=== PATIENT | male | born 1950 | race Caucasian/White ===

== ENCOUNTER 2016-04-23 17:31 | Inpatient (IN) | payer MEDICARE, MEDICAID ==
[2016-04-23] MEDS ORDERED: ASPIRIN 81 MG CHEWABLE TABLET PO ONE (17:58)
[2016-04-23 18:06] LABS: BASO % 0.2 % (0-6); GRAN % 52.5 % (47-80); HEMATOCRIT 48.4 % (42.0-52.0); HEMOGLOBIN 16.2 gm/dl (14.0-18.0); LYMPH % 34.5 % (16-45); MEAN CELL VOLUME 93.8 fl (81-97); MEAN CORPUSCULAR HEMOGLOBIN 31.4 pg (27-33); MEAN CORPUSCULAR HGB CONC 33.5 g/dl (32-36); MEAN PLATELET VOLUME 10.8 fl (7.4-10.4); MONO % 11.8 % (0-9); PLATELET COUNT 134 K/uL (130-400); RED BLOOD COUNT 5.16 M/uL (4.40-5.70); RED CELL DISTRIBUTION WIDTH 12.5 % (11.5-14.5); WHITE BLOOD COUNT W/O DIFF 5.2 K/uL (4.2-12.2)
[2016-04-23] MEDS: NITROGLYCERIN 0.4MG SL TABLET #25 BTL SL PRN ×2 (18:06→18:17)
[2016-04-23 18:19] LABS: ALB/GLOB RATIO 1.2 (1.1-1.8); ALBUMIN 3.8 gm/dL (3.5-5.0); ALKALINE PHOSPHATASE 138 U/L (38-126); ALT/SGPT 108 U/L (21-72); ANION GAP 10.9 (7-16); AST/SGOT 82 U/L (17-59); BILIRUBIN,TOTAL 0.33 mg/dL (0.2-1.3); BLOOD UREA NITROGEN 9 mg/dL (9-20); CARBON DIOXIDE 31.1 mmol/L (22-30); CREATINE PHOSPHOKINASE 31 U/L (55-170); CREATININE 0.9 mg/dL (0.66-1.25); EST GLOMERULAR FILTRATION RATE > 60 ml/min; GLUCOSE,RANDOM 326 mg/dL (70-110)
[2016-04-23 18:20] LABS: INR 1.15; PARTIAL THROMBOPLASTIN TIME 32.1 SECONDS (24.5-39.1)
[2016-04-23 18:21] LABS: D-DIMER 0.24 mg/L FEU (0-0.59)
[2016-04-23] MEDS ORDERED: ONDANSETRON HCL IV 4 MG/2 ML VIAL IVP ONE (18:29)
[2016-04-23] MEDS ORDERED: HYDROMORPHONE HCL 1 MG/ML CPJ IVP ONE (18:29)
[2016-04-23 18:32] LABS: CKMB < 0.2 ug/L (0-6); TROPONIN I < 0.012 ng/mL (0.00-0.034)
--- NOTE | 2016-04-23 18:39 | Emergency Department Record ---
History of Present Illness - General Chief Complaint: Chest Pain Stated Complaint: CHEST PAIN Time Seen by Provider: 04/23/16 17:46 Source: Patient Mode of Arrival: Wheelchair Limitations: No limitations - History of Present Illness Initial Comments: pt has been having cp for 2 days as well as sob, productive cough. he states he was unsure if it was his heart or his lungs. he took 2 ntg at home and it made his pain better. MD Complaint: Chest pain Onset/Timin -: Days(s) Onset: Awoke with symptoms Pain Location: Other Pain Radiation: None Quality: Other Consistency: Constant Improves With: Nitroglycerin Worsens With: Nothing Anginal Symptoms: Dyspnea Other Symptoms: Cough Treatments Prior to Arrival: Aspirin, Nitroglycerin Treatment Prior to Arrival Comment:: Nitro 45 minutes before coming to ED - Related Data Home Medications Medication Instructions Recorded Confirmed Last Taken Alprazolam [Xanax] 2 mg PO QID 04/30/14 04/23/16 04/23/16 Aspirin [Ecotrin] 81 mg PO DAILY 04/30/14 04/23/16 04/23/16 Atenolol [Tenormin] 50 mg PO BID 04/30/14 04/23/16 04/23/16 Cyclobenzaprine HCl [Flexeril] 10 mg PO TID 04/30/14 04/23/16 04/23/16 Diltiazem HCl [Cardizem Cd] 180 mg PO BID 04/30/14 04/23/16 04/23/16 Furosemide [Lasix] 20 mg PO DAILY 04/30/14 04/23/16 04/23/16 Potassium 10 meq PO DAILY 04/30/14 04/23/16 04/23/16 Rivaroxaban [Xarelto] 20 mg PO DAILY 04/30/14 04/23/16 04/23/16 Simvastatin [Zocor] 20 mg PO DAILY 04/30/14 04/23/16 04/23/16 Theophylline Anhydrous [Michael-Dur] 300 mg PO Q12H 04/30/14 04/23/16 04/23/16 Albuterol Sulfate 0.083% [Neb] 3 ml NEB .EVERY 4-6 HOURS PRN 04/18/15 04/23/16 04/23/16 Albuterol Sulfate [Ventolin Hfa] 1 - 2 puff IH .EVERY 4-6 HOURS PRN 04/18/1512/2804/23/16 Hydrocodone/Acetaminophen [[place] 1 tab PO Q6H PRN 04/23/16 04/23/16 Unknown 7.5mg/325mg] Allergies Allergy/AdvReac Type Severity Reaction Status Date / Time morphine Allergy HIVES Verified 04/23/16 18:00 Travel Screening - Travel/Exposure Within Last 30 Days Have you traveled within the last 30 days?: No Review of Systems Reviewed: No additional complaints except as noted below Constitutional: Reports: As per HPI. Denies: Chills, Fever, Malaise, Night sweats, Weakness, Weight change Eyes: Reports: As per HPI. Denies: Eye discharge, Eye pain, Photophobia, Vision change ENT: Reports: As per HPI. Denies: Congestion, Dental pain, Ear pain, Epistaxis , Hearing loss, Throat pain Respiratory: Reports: As per HPI. Denies: Cough, Dyspnea, Hemoptysis, Stridor, Wheezes Cardiovascular: Reports: As per HPI. Denies: Arrhythmia, Chest pain, Dyspnea on exertion, Edema, Murmurs, Orthopnea, Palpitations, Paroxysmal nocturnal dyspnea, Rheumatic Fever, Syncope Endocrine: Reports: As per HPI. Denies: Fatigue, Heat or cold intolerance, Polydipsia, Polyuria Gastrointestinal: Reports: As per HPI. Denies: Abdominal pain, Constipation, Diarrhea, Hematemesis, Hematochezia, Melena, Nausea, Vomiting Genitourinary: Reports: As per HPI. Denies: Dysuria, Frequency, Hematuria, Incontinence, Retention, Testicular pain, Testicular mass, Urgency Musculoskeletal: Reports: As per HPI. Denies: Arthralgia, Back pain, Gout, Joint swelling, Myalgia, Neck pain Skin: Reports: As per HPI. Denies: Bruising, Change in color, Change in hair/ nails, Lesions, Pruritus, Rash Neurological: Reports: As per HPI. Denies: Abnormal gait, Confusion, Headache, Numbness, Paresthesias, Seizure, Tingling, Tremors, Vertigo, Weakness Psychiatric: Reports: As per HPI. Denies: Anxiety, Auditory hallucinations, Depression, Homicidal thoughts, Suicidal thoughts, Visual hallucinations Hematological/Lymphatic: Reports: As per HPI. Denies: Anemia, Blood Clots, Easy bleeding, Easy bruising, Swollen glands Past Medical History - SOCIAL HISTORY Smoking Status: Current every day smoker Alcohol Use: None Drug Use: None - RESPIRATORY Hx Respiratory Disorders: Yes Hx Asthma: Yes Hx Bronchitis: Yes Hx COPD: Yes Comment:: home O2 at night 2L - CARDIOVASCULAR Hx Cardio Disorders: Yes Hx Abnormal EKG: Yes Hx Cardiac Cath: Yes Hx Heart Attack: Yes Hx Pacemaker/Defib: Yes Comment:: stent in heart, high cholesterol - NEURO Hx Neuro Disorders: Yes Hx Headaches: Yes - GI Hx GI Disorders: Yes Hx Abdominal Pain: Yes - Hx Genitourinary Disorders: No - ENDOCRINE Hx Endocrine Disorders: No - MUSCULOSKELETAL Hx Musculoskeletal Disorders: Yes Hx Arthritis: Yes - PSYCH Hx Psych Problems: No - HEMATOLOGY/ONCOLOGY Hx Hematology/Oncology Disorders: No Family Medical History Any Significant Family History?: Yes Hx Cancer: Mother, Children, Brother/Sister *Cancer Comment: stomach cancer Hx Heart Disease: Father Physical Exam - General General Appearance: Alert, Oriented x3, Cooperative, Mild distress - Head Head exam: Normal inspection - Eye Eye exam: Normal appearance, PERRL, EOMI Pupils: Normal accommodation - ENT ENT exam: Normal exam, Mucous membranes moist, Normal external ear exam, Normal orophraynx Ear exam: Normal external inspection. negative: External canal tenderness Nasal Exam: Normal inspection. negative: Discharge, Sinus tenderness Mouth exam: Normal external inspection, Tongue normal Teeth exam: Normal inspection. negative: Dental caries Throat exam: Normal inspection. negative: Tonsillar erythema, Tonsillar exudate - Neck Neck exam: Normal inspection, Full ROM. negative: Tenderness - Respiratory Respiratory exam: Normal lung sounds bilaterally. negative: Respiratory distress - Cardiovascular Cardiovascular Exam: Regular rate, Normal rhythm, Normal heart sounds - GI/Abdominal GI/Abdominal exam: Soft, Normal bowel sounds. negative: Tenderness - Rectal Rectal exam: Deferred - exam: Deferred - Extremities Extremities exam: Normal inspection, Full ROM, Normal capillary refill. negative: Tenderness - Back Back exam: Reports: Normal inspection, Full ROM. Denies: Muscle spasm, Rash noted, Tenderness - Neurological Neurological exam: Alert, CN II-XII intact, Normal gait, Oriented X3 - Psychiatric Psychiatric exam: Normal affect, Normal mood - Skin Skin exam: Dry, Intact, Normal color, Warm Course Vital Signs 04/23/16 04/23/16 04/23/16 17:37 17:56 18:09 Temperature 98.5 F Pulse Rate 69 Pulse Rate [ [address] ] Respiratory 22 20 22 Rate Blood Pressure 111/88 Blood Pressure 114/77 118/82 [Right Arm] Pulse Ox 89 L 93 L 92 L 04/23/16 04/23/16 18:17 18:20 Temperature Pulse Rate Pulse Rate [ [address] ] Respiratory 18 24 Rate Blood Pressure Blood Pressure 123/81 112/69 [Right Arm] Pulse Ox 94 L 91 L Medical Decision Making - Lab Data Result diagrams: 04/23/16 17:50 04/23/16 17:50 Lab Results 04/23/16 04/23/16 04/23/16 Range/Units 17:50 17:50 17:50 WBC 5.2 (4.2-12.2) K/uL RBC 5.16 (4.40-5.70) M/uL Hgb 16.2 (14.0-18.0) gm/dl Hct 48.4 (42.0-52.0) % MCV 93.8 (81-97) fl MCH 31.4 (27-33) pg MCHC 33.5 (32-36) g/dl RDW 12.5 (11.5-14.5) % Plt Count 134 (130-400) K/uL MPV 10.8 H (7.4-10.4) fl Gran % 52.5 (47-80) % Lymphocytes % 34.5 (16-45) % Monocytes % 11.8 H (0-9) % Eosinophils % 1.0 (0-6) % Basophils % 0.2 (0-6) % PT 13.0 H (9.5-12.1) SECONDS INR 1.15 PTT 32.10 (24.5-39.1) SECONDS D-Dimer 0.24 (0-0.59) mg/L FEU Sodium 136 (136-145) mmol/L Potassium 4.2 (3.5-5.1) mmol/L Chloride 94 L (98-107) mmol/L Carbon Dioxide 31.1 H (22-30) mmol/L Anion Gap 10.9 (7-16) BUN 9 (9-20) mg/dL Creatinine 0.9 (0.66-1.25) mg/dL Estimated GFR > 60 ml/min Random Glucose 326 H (70-110) mg/dL Calcium 8.5 (8.5-10.1) mg/dL Total Bilirubin 0.33 (0.2-1.3) mg/dL AST 82 H (17-59) U/L ALT 108 H (21-72) U/L Alkaline Phosphatase 138 H (38-126) U/L Creatine Kinase 31 L (55-170) U/L Total Protein 7.0 (6.3-8.2) gm/dL Albumin 3.8 (3.5-5.0) gm/dL Globulin 3.2 (1.4-4.8) gm/dL Albumin/Globulin Ratio 1.2 (1.1-1.8) Disposition Clinical Impression: Chronic obstructive pulmonary disease with acute exacerbation, Hypoxia Chest pain Qualifiers: Chest pain type: unspecified Qualified Code(s): R07.9 - Chest pain, unspecified Disposition: Still a Patient at [facility] Decision to Admit: Admit from ER Decision to Admit Date: 04/23/16 Decision to Admit Time: 19:03 Forms: Patient Portal Access
[2016-04-23] MEDS ORDERED: IPRATROPIUM/ALBUTEROL (0.5MG/3MG) NEB INH ONE (18:40)
[2016-04-23] MEDS ORDERED: METHYLPREDNISOLONE PF 125MG/VIAL IVP ONE (18:40)
[2016-04-23] MEDS ORDERED: IPRATROPIUM/ALBUTEROL (0.5MG/3MG) NEB INH PRN (19:40)
[2016-04-23] MEDS ORDERED: NITROGLYCERIN 0.4MG SL TABLET #25 BTL SL PRN (19:40)
[2016-04-23] MEDS ORDERED: ALBUTEROL SULFATE (0.083%) 2.5 MG/3 ML NEB INH PRN (19:40)
[2016-04-23] MEDS ORDERED: TEMAZEPAM 15 MG CAPSULE PO PRN (19:40)
[2016-04-23] MEDS ORDERED: HYDROMORPHONE HCL 1 MG/ML CPJ IVP PRN (19:40)
[2016-04-23] MEDS ORDERED: ACETAMINOPHEN 500 MG TABLET PO PRN (19:40)
[2016-04-23] MEDS ORDERED: HYDROCODONE/APAP 7.5/325MG TABLET PO PRN (19:40)
[2016-04-23] MEDS: METHYLPREDNISOLONE PF 125MG/VIAL IVP SCH (19:51)
[2016-04-23] MEDS: THEOPHYLLINE ANHYDROUS 300 MG PO SCH (20:32)
[2016-04-23] MEDS: ALPRAZOLAM 2 MG PO SCH (21:08)
[2016-04-23] MEDS ORDERED: DILTIAZEM 180MG CR CAPSULE PO SCH (22:00)
[2016-04-23] MEDS ORDERED: ATENOLOL 25 MG TABLET PO SCH (22:00)
[2016-04-23] MEDS ORDERED: CYCLOBENZAPRINE 10MG TABLET PO SCH (22:00)
[2016-04-24] MEDS: METHYLPREDNISOLONE PF 125MG/VIAL IVP SCH ×2 (01:15→04:07)
--- NOTE | 2016-04-24 07:20 | History & Physical ---
History of Present Illness - Date of Service Date of Service for History & Physical: 04/24/16 - History of Present Illness Admitting Diagnosis: acute exacerbation of copd with bronchitis and hypoxia, chest pain History of Present Illness: 65 yo male admitted with copd exacerbation and cc of chest pain. PMHx consists of Travel Screening - Travel/Exposure Within Last 30 Days Have you traveled within the last 30 days?: No Review of Systems Constitutional: Reports: As per HPI. Denies: Chills, Fever, Malaise, Night sweats, Weakness, Weight change Eyes: Reports: As per HPI. Denies: Eye discharge, Eye pain, Photophobia, Vision change ENT: Reports: As per HPI. Denies: Congestion, Dental pain, Ear pain, Epistaxis , Hearing loss, Throat pain Respiratory: Reports: As per HPI. Denies: Cough, Dyspnea, Hemoptysis, Stridor, Wheezes Cardiovascular: Reports: As per HPI. Denies: Arrhythmia, Chest pain, Dyspnea on exertion, Edema, Murmurs, Orthopnea, Palpitations, Paroxysmal nocturnal dyspnea, Rheumatic Fever, Syncope Endocrine: Reports: As per HPI. Denies: Fatigue, Heat or cold intolerance, Polydipsia, Polyuria Gastrointestinal: Reports: As per HPI. Denies: Abdominal pain, Constipation, Diarrhea, Hematemesis, Hematochezia, Melena, Nausea, Vomiting Genitourinary: Reports: As per HPI. Denies: Dysuria, Frequency, Hematuria, Incontinence, Retention, Testicular pain, Testicular mass, Urgency Musculoskeletal: Reports: As per HPI. Denies: Arthralgia, Back pain, Gout, Joint swelling, Myalgia, Neck pain Skin: Reports: As per HPI. Denies: Bruising, Change in color, Change in hair/ nails, Lesions, Pruritus, Rash Neurological: Reports: As per HPI. Denies: Abnormal gait, Confusion, Headache, Numbness, Paresthesias, Seizure, Tingling, Tremors, Vertigo, Weakness Psychiatric: Reports: As per HPI. Denies: Anxiety, Auditory hallucinations, Depression, Homicidal thoughts, Suicidal thoughts, Visual hallucinations Hematological/Lymphatic: Reports: As per HPI. Denies: Anemia, Blood Clots, Easy bleeding, Easy bruising, Swollen glands Past Medical History - SOCIAL HISTORY Smoking Status: Current every day smoker - RESPIRATORY Hx Respiratory Disorders: Yes Hx Asthma: Yes Hx Bronchitis: Yes Hx COPD: Yes Comment:: home O2 at night 2L - CARDIOVASCULAR Hx Cardio Disorders: Yes Hx Abnormal EKG: Yes Hx Cardiac Cath: Yes Hx Heart Attack: Yes Hx Pacemaker/Defib: Yes Comment:: stent in heart, high cholesterol - NEURO Hx Neuro Disorders: Yes Hx Headaches: Yes - GI Hx GI Disorders: Yes Hx Abdominal Pain: Yes - Hx Genitourinary Disorders: No - ENDOCRINE Hx Endocrine Disorders: No - MUSCULOSKELETAL Hx Musculoskeletal Disorders: Yes Hx Arthritis: Yes - PSYCH Hx Psych Problems: No - HEMATOLOGY/ONCOLOGY Hx Hematology/Oncology Disorders: No Family Medical History Any Significant Family History?: Yes Hx Cancer: Mother, Children, Brother/Sister *Cancer Comment: stomach cancer Hx Heart Disease: Father H&P Meds/Allergies - Allergies Allergies: Allergies Allergy/AdvReac Type Severity Reaction Status Date / Time morphine Allergy HIVES Verified 04/23/16 18:00 - Home Medications Home Medications Medication Instructions Recorded Confirmed Last Taken Alprazolam [Xanax] 2 mg PO QID 04/30/14 04/23/16 04/23/16 Aspirin [Ecotrin] 81 mg PO DAILY 04/30/14 04/23/16 04/23/16 Atenolol [Tenormin] 50 mg PO BID 04/30/14 04/23/16 04/23/16 Cyclobenzaprine HCl [Flexeril] 10 mg PO TID 04/30/14 04/23/16 04/23/16 Diltiazem HCl [Cardizem Cd] 180 mg PO BID 04/30/14 04/23/16 04/23/16 Furosemide [Lasix] 20 mg PO DAILY 04/30/14 04/23/16 04/23/16 Potassium 10 meq PO DAILY 04/30/14 04/23/16 04/23/16 Rivaroxaban [Xarelto] 20 mg PO DAILY 04/30/14 04/23/16 04/23/16 Simvastatin [Zocor] 20 mg PO DAILY 04/30/14 04/23/16 04/23/16 Theophylline Anhydrous [Michael-Dur] 300 mg PO Q12H 04/30/14 04/23/16 04/23/16 Albuterol Sulfate 0.083% [Neb] 3 ml NEB .EVERY 4-6 HOURS PRN 04/18/15 04/23/16 04/23/16 Albuterol Sulfate [Ventolin Hfa] 1 - 2 puff IH .EVERY 4-6 HOURS PRN 04/18/1512/2804/23/16 Hydrocodone/Acetaminophen [[place] 1 tab PO Q6H PRN 04/23/16 04/23/16 Unknown 7.5mg/325mg] - Active Medications Active Medications: Current Medications Acetaminophen (Tylenol 500mg Tab) 1,000 mg PO Q6H PRN PRN Reason: PAIN/TEMP Acetaminophen/Hydrocodone Bitart ([place] 7.5mg/325mg) each PO Q6H PRN PRN Reason: Pain - General Albuterol Sulfate () 2.5 mg INH RESP.Q2H PRN PRN Reason: DIFFICULTY IN BREATHING Last Admin: 04/23/16 22:09 Dose: 2.5 mg Albuterol/Ipratropium (Duoneb) 3 ml INH RESP.Q6H PRN PRN Reason: Wheezing Last Admin: 04/24/16 05:32 Dose: 3 ml Aspirin (Ecotrin (Ec)) 325 mg PO DAILY [facility] Atenolol (Tenormin) 50 mg PO BID [facility] Last Admin: 04/23/16 21:09 Dose: Not Given Cyclobenzaprine HCl (Flexeril) 10 mg PO TID [facility] Last Admin: 04/23/16 21:09 Dose: Not Given Diltiazem HCl (Cardizem Cd) 180 mg PO BID [facility] Last Admin: 04/23/16 21:09 Dose: Not Given Furosemide (Lasix) 20 mg PO DAILY [facility] Hydromorphone HCl (Dilaudid) 1 mg IVP Q4H PRN PRN Reason: CHEST PAIN Last Admin: 04/23/16 20:08 Dose: 1 mg Methylprednisolone Sodium Succinate (Solu-Medrol) 60 mg IVP Q8H [facility] Last Admin: 04/24/16 04:07 Dose: Not Given Nitroglycerin (Nitrostat 0.4mg) 0.4 mg SL Q5MIN PRN PRN Reason: CHEST PAIN Stop: 04/25/16 19:41 Non-Formulary Medication (Alprazolam [Xanax]) 2 mg PO QID [facility] Last Admin: 04/23/16 21:08 Dose: Not Given Non-Formulary Medication (Potassium [Potassium]) 10 meq PO DAILY [facility] Non-Formulary Medication (Theophylline Anhydrous) 300 mg PO Q12H [facility] Last Admin: 04/23/16 20:32 Dose: Not Given Rivaroxaban (Xarelto) 20 mg PO DAILY [facility] Simvastatin (Zocor) 20 mg PO DAILY [facility] Temazepam ([place]) 15 mg PO QHS PRN PRN Reason: INSOMNIA Physical Exam - Vital Signs Vital Signs: Vital Signs - Last 24 Hrs Temp Pulse Pulse Resp BP Pulse Ox 04/24/16 06:00 98.6 F 67 22 108/69 90 L 04/24/16 05:32 65 20 88 L 04/24/16 01:21 64 20 101/68 90 L 04/23/16 22:09 64 24 88 L 04/23/16 22:05 98.0 F 61 18 108/67 94 L 04/23/16 20:00 69 22 04/23/16 19:40 98.2 F 69 22 123/72 93 L - General General Appearance: Alert, Oriented x3, Cooperative, Mild distress Limitations: No limitations - Head Head exam: Normal inspection - Eye Eye exam: Normal appearance, PERRL, EOMI Pupils: Normal accommodation - ENT ENT exam: Normal exam, Mucous membranes moist, Normal external ear exam, Normal orophraynx Ear exam: Normal external inspection. negative: External canal tenderness Nasal Exam: Normal inspection. negative: Discharge, Sinus tenderness Mouth exam: Normal external inspection, Tongue normal Teeth exam: Normal inspection. negative: Dental caries Throat exam: Normal inspection. negative: Tonsillar erythema, Tonsillar exudate - Neck Neck exam: Normal inspection, Full ROM. negative: Tenderness - Respiratory Respiratory exam: Normal lung sounds bilaterally. negative: Respiratory distress - Cardiovascular Cardiovascular Exam: Regular rate, Normal rhythm, Normal heart sounds - GI/Abdominal GI/Abdominal exam: Soft, Normal bowel sounds. negative: Tenderness - Rectal Rectal exam: Deferred - exam: Deferred - Extremities Extremities exam: Normal inspection, Full ROM, Normal capillary refill. negative: Tenderness - Back Back exam: Reports: Normal inspection, Full ROM. Denies: Muscle spasm, Rash noted, Tenderness - Neurological Neurological exam: Alert, CN II-XII intact, Normal gait, Oriented X3 - Psychiatric Psychiatric exam: Normal affect, Normal mood - Skin Skin exam: Dry, Intact, Normal color, Warm Results - Labs Result Diagrams: 04/23/16 17:50 04/23/16 17:50 Labs Last 24 Hours: Laboratory Results - last 24 hr 04/24/16 04/24/16 01:05 01:05 CK-MB (CK-2) < 0.2 Troponin I < 0.012 VTE H&P Assessment - Risk for VTE Risk for VTE: Yes Risk Level: Moderate Risk Assessment Date: 04/24/16 Risk Assessment Time: 11:00 VTE Orders Placed or Will Be Placed: Yes Plan - Inpatient Certification Inpatient Certification: Admit to inpatient care: Based on my medical assessment, after consideration of patient's risk factors (age, co-morbidities and patient presenting symptoms and acuity), I expect that this patient will remain in the hospital greater than or equal to two midnights and that the services needed warrant inpatient care because: Patient Risk Factors: [] Estimated length of stay: [] The patient may reasonably be expected to be discharged or transferred to a hospital within 96 hours after admission to [facility]. Services needed: [] Post hospital care (if known): [] I certify that my determination is in accordance with my understanding of Medicare requirements for reasonable and necessary inpatient services. - Detailed Diagnosis and Plan (1) Chest pain Current Visit: Yes Status: Acute Qualifiers: Chest pain type: unspecified Qualified Code(s): R07.9 - Chest pain, unspecified Base Code: R07.9 - CHEST PAIN, UNSPECIFIED (2) Chronic obstructive pulmonary disease with acute exacerbation Current Visit: Yes Status: Acute Base Code: J44.1 - CHRONIC OBSTRUCTIVE PULMONARY DISEASE W (ACUTE) EXACERBATION (3) DVT prophylaxis Current Visit: Yes Status: Acute Base Code: [id number] -
[2016-04-24] MEDS ORDERED: THEOPHYLLINE 100 MG PO ONE (08:20)
[2016-04-24] MEDS: THEOPHYLLINE ANHYDROUS 300 MG PO SCH (08:20)
[2016-04-24 09:06] LABS: HEMATOCRIT 49.3 % (42.0-52.0); MEAN CELL VOLUME 95.4 fl (81-97); MEAN CORPUSCULAR HEMOGLOBIN 30.9 pg (27-33); MEAN CORPUSCULAR HGB CONC 32.5 g/dl (32-36); MEAN PLATELET VOLUME 10.8 fl (7.4-10.4); PLATELET COUNT 125 K/uL (130-400); RED BLOOD COUNT 5.17 M/uL (4.40-5.70); RED CELL DISTRIBUTION WIDTH 12.5 % (11.5-14.5); WHITE BLOOD COUNT W/O DIFF 4.4 K/uL (4.2-12.2)
[2016-04-24 09:15] LABS: ALB/GLOB RATIO 1.2 (1.1-1.8); ALBUMIN 3.7 gm/dL (3.5-5.0); ALKALINE PHOSPHATASE 134 U/L (38-126); ALT/SGPT 155 U/L (21-72); ANION GAP 13.4 (7-16); AST/SGOT 175 U/L (17-59); BILIRUBIN,TOTAL 0.46 mg/dL (0.2-1.3); BLOOD UREA NITROGEN 17 mg/dL (9-20); CARBON DIOXIDE 29.6 mmol/L (22-30); EST GLOMERULAR FILTRATION RATE > 60 ml/min; TOTAL PROTEIN 6.9 gm/dL (6.3-8.2)
[2016-04-24 09:24] LABS: GLUCOSE,RANDOM 559 mg/dL (70-110)
[2016-04-24] MEDS ORDERED: ALPRAZOLAM 1 MG TAB PO ONE (09:39)
[2016-04-24] MEDS: ALPRAZOLAM 2 MG PO SCH (09:39)
[2016-04-24] MEDS ORDERED: FUROSEMIDE 20 MG TABLET PO SCH (10:00)
[2016-04-24] MEDS ORDERED: SIMVASTATIN 20 MG TABLET PO SCH (10:00)
[2016-04-24] MEDS ORDERED: POTASSIUM 10 MEQ PO SCH (10:00)
[2016-04-24] MEDS ORDERED: RIVAROXABAN 20 MG TABLET PO SCH (10:00)
[2016-04-24] MEDS ORDERED: ASPIRIN 325 MG TAB ENTERIC-COATED PO SCH (10:00)
--- NOTE | 2016-04-24 19:51 | Discharge Note ---
Discharge Note - Date Date of Discharge Note: 04/24/16 Disposition: Against Medical Advice Additional Instructions: Patient left AMA prior to me being able to evaluate patient. Forms: Patient Portal Access
--- NOTE | 2016-04-26 07:52 | RADIOLOGY REPORT ---
EXAM: CHEST, TWO VIEWS HISTORY: PRESSURE AROUND MID CHEST. WEAKNESS. COUGH. TECHNIQUE: Upright PA and lateral views of the chest were obtained. Comparison: Two view chest radiographic examination dated 04/18/15. FINDINGS: A dual lead transvenous cardiac stimulator is in place via the right subclavian approach with lead tips in the right atrium and right ventricle respectively. The heart is not enlarged and the pulmonary vasculature is nondilated. The lung volumes are low. There is questionable minimal patchy predominantly linear opacities within the left lung base consistent with atelectasis or scarring. Early infiltrate is less likely. The lungs and pleural spaces are otherwise clear. IMPRESSION: 1. LOW LUNG VOLUMES. PATCHY PREDOMINANTLY LINEAR OPACITIES IN THE LATERAL LEFT LUNG BASE LIKELY RELATE TO ATELECTASIS OR SCARRING WITH EARLY INFILTRATE LESS LIKELY. 2. CARDIAC PACER IN PLACE. JOB NUMBER: [id number] MTDD
== END 2016-04-24 09:45 | disposition left against medical advice (07) | DRG 192 ==
LOC: ER 17:31 → MEDSURG 19:34
PROVIDERS: ADMIT Family Medicine; ATTEND Family Medicine
DX: J44.1 Chronic obstructive pulmonary disease with (acute) exacerbation (principal); F17.200 Nicotine dependence, unspecified, uncomplicated; R07.9 Chest pain, unspecified
CPT/HCPCS: 99285 ×2; 94760; 96374; 82550; 85025; 85730; 85610; 83874; 82553; 84484; 80053; 85379; 83880; 71020; 94640; 93005; 93010; J2405; J1170; 85027; J2930; J7613

== ENCOUNTER 2017-05-06 17:16 | Emergency (ER) | payer MEDICARE, MEDICAID ==
--- NOTE | 2017-05-06 17:43 | Emergency Department Record ---
History of Present Illness - General Chief Complaint: Laceration(s) Stated Complaint: LACERATION Time Seen by Provider: 05/06/17 17:23 Source: Patient Mode of Arrival: Ambulatory Limitations: No limitations - History of Present Illness Initial Commments: 66 yo male presents with a hand laceration. He was opening a can of chili beans. He is on Xarelto and has had persistent bleeding. No numbness, tingling or changes in ROM. He is up to date on tetanus. He cleaned the wound at home. No other complaints or injuries. -: Hour(s) (1.5) Extremity Location: Left: Hand Place: Home Context: Accidental, Sharp object use Associated Symptoms: None Treatments Prior to Arrival: Bandage - Radha Coma Scale Eye Response: (4) Open spontaneously Motor Response: (6) Obeys commands Verbal Response: (5) Oriented Tiline Total: 15 - Related Data Allergies Allergy/AdvReac Type Severity Reaction Status Date / Time morphine Allergy HIVES Verified 05/06/17 17:37 Review of Systems Constitutional: Denies: Chills, Fever, Malaise Eyes: Denies: Eye discharge, Eye pain ENT: Denies: Congestion, Dental pain, Throat pain Respiratory: Denies: Cough, Dyspnea, Hemoptysis, Wheezes Cardiovascular: Denies: Chest pain, Palpitations, Syncope Endocrine: Denies: Fatigue Gastrointestinal: Denies: Abdominal pain, Diarrhea, Nausea, Vomiting Genitourinary: Denies: Dysuria, Frequency, Hematuria Musculoskeletal: Denies: Arthralgia, Back pain, Joint swelling, Myalgia, Neck pain Skin: Reports: Other (laceration). Denies: Bruising, Change in color, Rash Neurological: Denies: Confusion, Headache Psychiatric: Denies: Anxiety Hematological/Lymphatic: Reports: As per HPI, Easy bleeding. Denies: Blood Clots, Easy bruising, Swollen glands Past Medical History - SOCIAL HISTORY Smoking Status: Current every day smoker - RESPIRATORY Hx Respiratory Disorders: Yes Hx Asthma: Yes Hx Bronchitis: Yes Hx COPD: Yes Comment:: home O2 at night 2L - CARDIOVASCULAR Hx Cardio Disorders: Yes Hx Abnormal EKG: Yes Hx Cardiac Cath: Yes Hx Heart Attack: Yes Hx Pacemaker/Defib: Yes Comment:: stent in heart, high cholesterol - NEURO Hx Neuro Disorders: Yes Hx Headaches: Yes - GI Hx GI Disorders: Yes Hx Abdominal Pain: Yes - Hx Genitourinary Disorders: No - ENDOCRINE Hx Endocrine Disorders: No - MUSCULOSKELETAL Hx Musculoskeletal Disorders: Yes Hx Arthritis: Yes - PSYCH Hx Psych Problems: No - HEMATOLOGY/ONCOLOGY Hx Hematology/Oncology Disorders: No Family Medical History Hx Cancer: Mother, Children, Brother/Sister *Cancer Comment: stomach cancer Hx Heart Disease: Father Physical Exam - General General Appearance: Alert, Oriented x3, Cooperative, No acute distress Limitations: No limitations - Head Head exam: Atraumatic, Normal inspection - Eye Eye exam: Normal appearance. negative: Conjunctival injection - ENT ENT exam: Normal exam Ear exam: Normal external inspection Nasal Exam: Normal inspection Mouth exam: Normal external inspection - Neck Neck exam: Normal inspection - Cardiovascular Peripheral Pulses: 2+: Radial (L) - Rectal Rectal exam: Deferred - exam: Deferred - Extremities Extremities exam: Full ROM, Normal capillary refill. negative: Normal inspection, Joint swelling, Tenderness Image of Hand: 1 - 1.5 cm linear laceration, no FB, no visible tendon. Clean on inspection - Neurological Neurological exam: Alert, Normal gait, Oriented X3, Reflexes normal. negative: Motor sensory deficit - Psychiatric Psychiatric exam: Normal affect, Normal mood - Skin Skin exam: Dry, Intact, Normal color, Warm Course - Reevaluation(s) Reevaluation #1: 05/06/17 17:45 Proceduire 1.5cm hand laceration Betadine Prep Lidocaine with epi 1ml local NS copious irrigation 4-0 Prolen Suture 4 sutures placed with good wound approximation We discussed home care, follow up and signs and symptoms of infection. Disposition Disposition: Discharge Clinical Impression: Hand laceration Qualifiers: Encounter type: initial encounter Foreign body presence: without foreign body Laterality: left Qualified Code(s): S61.412A - Laceration without foreign body of left hand, initial encounter Disposition: Home, Self-Care Condition: (1) Good Instructions: Laceration (ED) Additional Instructions: Return immediately if warm, red, pus or any new concerns Return or be seen in 7 days for suture removal Forms: Patient Portal Access Time of Disposition: 17:47 Quality - Quality Measures Quality Measures: N/A - Blood Pressure Screening Does Patient Have Any of the Following: Active Dx of HTN Blood Pressure Classification: Pre-Hypertensive BP Reading Systolic Measurement: 153 Diastolic Measurement: 83 Screening for High Blood Pressure: Patient Exclusion, Hx of HTN [[id number]]
== END 2017-05-06 18:02 | disposition home or self-care (01) ==
LOC: ER 17:16
DX: S61.412A Laceration without foreign body of left hand, initial encounter (principal); W26.8XXA Contact with other sharp object(s), not elsewhere classified, initial encounter; Z79.01 Long term (current) use of anticoagulants; I10 Essential (primary) hypertension; F17.210 Nicotine dependence, cigarettes, uncomplicated; Y92.009 Unspecified place in unspecified non-institutional (private) residence as the place of occurrence of the external cause
CPT/HCPCS: 12001; 99283

== ENCOUNTER 2017-08-27 00:39 | Emergency (ER) | payer MEDICARE, MEDICAID ==
[2017-08-27] MEDS ORDERED: ASPIRIN 81 MG CHEWABLE TABLET PO ONE (00:45)
--- NOTE | 2017-08-27 00:46 | Emergency Department Record ---
History of Present Illness - General Chief Complaint: Chest Pain Stated Complaint: CHEST PAIN Source: Patient Mode of Arrival: Ambulatory Limitations: No limitations - History of Present Illness Initial Comments: 66 yo male presents to ED for evaluation of chest pain symptoms that began 2-3 days ago, reports several previous heart attacks s/p stenting. Patient describes his pain symptoms as "pressure", denies recent fevers, chills, or cough symptoms. Patient reports history of DM, HTN, and COPD as well. Patient denies recent stress testing, reports that his trip rider is Dr. Oneill. Patient is also a current smoker. MD Complaint: Chest pain Onset/Timin -: Days(s) Pain Location: Substernal Severity: Moderate Quality: Aching Consistency: Intermittent Other Symptoms: Other (Hematuria) Treatments Prior to Arrival: None - Related Data Allergies Allergy/AdvReac Type Severity Reaction Status Date / Time morphine Allergy HIVES Verified 05/06/17 17:37 Review of Systems Constitutional: Denies: Chills, Fever, Malaise, Night sweats Eyes: Denies: Eye discharge, Eye pain, Photophobia ENT: Denies: Congestion, Ear pain, Epistaxis Respiratory: Denies: Cough, Dyspnea Cardiovascular: Reports: Chest pain. Denies: Dyspnea on exertion Endocrine: Denies: Fatigue, Heat or cold intolerance Gastrointestinal: Denies: Abdominal pain, Nausea, Vomiting Genitourinary: Reports: Hematuria Musculoskeletal: Denies: Arthralgia, Back pain, Gout, Joint swelling Skin: Denies: Bruising, Change in color, Change in hair/nails Neurological: Denies: Abnormal gait, Confusion, Headache, Seizure Psychiatric: Denies: Anxiety Hematological/Lymphatic: Denies: Anemia, Blood Clots Past Medical History - SOCIAL HISTORY Smoking Status: Current every day smoker - RESPIRATORY Hx Respiratory Disorders: Yes Hx Asthma: Yes Hx Bronchitis: Yes Hx COPD: Yes Comment:: home O2 at night 2L - CARDIOVASCULAR Hx Cardio Disorders: Yes Hx Abnormal EKG: Yes Hx Cardiac Cath: Yes Hx Heart Attack: Yes Hx Pacemaker/Defib: Yes Comment:: stent in heart, high cholesterol - NEURO Hx Neuro Disorders: Yes Hx Headaches: Yes - GI Hx GI Disorders: Yes Hx Abdominal Pain: Yes - Hx Genitourinary Disorders: No - ENDOCRINE Hx Endocrine Disorders: No - MUSCULOSKELETAL Hx Musculoskeletal Disorders: Yes Hx Arthritis: Yes - PSYCH Hx Psych Problems: No - HEMATOLOGY/ONCOLOGY Hx Hematology/Oncology Disorders: No Family Medical History Hx Cancer: Mother, Children, Brother/Sister *Cancer Comment: stomach cancer Hx Heart Disease: Father Physical Exam - General General Appearance: Alert, Oriented x3, Cooperative, Moderate distress Limitations: No limitations - Head Head exam: Atraumatic, Normocephalic, Normal inspection Head exam detail: negative: Abrasion, Contusion, Desouza's sign, General tenderness, Hematoma, Laceration - Eye Eye exam: Normal appearance, Other (Subconjunctival hemorrhage right eye laterally). negative: Periorbital swelling, Periorbital tenderness, Scleral icterus - ENT Ear exam: negative: Auricular hematoma, Auricular trauma Nasal Exam: negative: Active bleeding, Discharge, Dried blood, Foreign body Mouth exam: negative: Drooling, Laceration, Muffled voice, Tongue elevation - Neck Neck exam: Normal inspection. negative: Meningismus, Tenderness - Respiratory Respiratory exam: Normal lung sounds bilaterally. negative: Rales, Respiratory distress, Rhonchi, Stridor - Cardiovascular Cardiovascular Exam: Regular rate, Normal rhythm, Normal heart sounds - GI/Abdominal GI/Abdominal exam: Soft. negative: Rebound, Rigid, Tenderness - Rectal Rectal exam: Deferred - exam: Deferred - Extremities Extremities exam: Normal inspection. negative: Calf tenderness, Pedal edema, Tenderness - Back Back exam: Denies: CVA tenderness (R), CVA tenderness (L) - Neurological Neurological exam: Alert, Normal gait, Oriented X3 - Psychiatric Psychiatric exam: Normal affect, Normal mood - Skin Skin exam: Normal color. negative: Abrasion Type of lesion: negative: abrasion Course - Reevaluation(s) Reevaluation #1: 08/27/17 00:50 EKG: Paced rhythm 63 Normal axis, normal intervals Reevaluation #2: 08/27/17 01:14 EKG: Paced rhythm 61 Normal axis, normal intervals No acute ST-T wave changes Reevaluation #3: 08/27/17 01:24 Portable CXR reviewed: No cardiomegaly No widened mediastinum Reevaluation #4: 08/27/17 01:57 Labs reviewed and are grossly unremarkable for acute process. CT Brain: No acute process. [facility] 1-call contacted for transfer. Reevaluation #5: 08/27/17 02:11 Patient was updated on all results on the plan for transfer and further cardiac evaluation. Case was discussed with Dr. Long, will accept transfer at this time. Medical Decision Making - Lab Data Result diagrams: 08/27/17 00:48 08/27/17 00:48 Disposition Disposition: Transfer Clinical Impression: HTN (hypertension) Qualifiers: Hypertension type: unspecified Qualified Code(s): I10 - Essential (primary) hypertension Diabetes mellitus Qualifiers: Diabetes mellitus type: other specified (including SANDRA) Diabetes mellitus extermination inspector insulin use: unspecified extermination inspector insulin use status Diabetes mellitus complication status: without complication Qualified Code(s): E13.9 - Other specified diabetes mellitus without complications Chest pain Qualifiers: Chest pain type: unspecified Qualified Code(s): R07.9 - Chest pain, unspecified Disposition: Acute Care Hospital Transfer [facility] Reason For Transfer: Unstable Angina Accepting Physician: Ethan Time Discussed w/Accepting Physician: 02:12 Condition: (2) Stable Forms: Patient Portal Access Time of Disposition: 02:12 Quality - Quality Measures Quality Measures: N/A - Blood Pressure Screening Does Patient Have Any of the Following: Active Dx of HTN Blood Pressure Classification: Hypertensive Reading Systolic Measurement: 195 Diastolic Measurement: 110 Screening for High Blood Pressure: Patient Exclusion, Hx of HTN [[id number]]
[2017-08-27] MEDS: NITROGLYCERIN 0.4MG SL TABLET #25 BTL SL ONE ×2 (00:49→00:53)
[2017-08-27] MEDS ORDERED: HYDROMORPHONE HCL 2 MG/ML VIAL IVP ONE ×2 (00:52→02:01)
[2017-08-27 00:58] LABS: BASO % 0.2 % (0-6); EOS % 2.6 % (0-6); GRAN % 65.4 % (47-80); HEMOGLOBIN 16.7 gm/dl (14.0-18.0); LYMPH % 23.9 % (16-45); MEAN CELL VOLUME 95.3 fl (81-97); MEAN CORPUSCULAR HEMOGLOBIN 31.2 pg (27-33); MEAN CORPUSCULAR HGB CONC 32.7 g/dl (32-36); MEAN PLATELET VOLUME 9.7 fl (7.4-10.4); MONO % 7.9 % (0-9); PLATELET COUNT 214 K/uL (130-400); RED BLOOD COUNT 5.35 M/uL (4.40-5.70); RED CELL DISTRIBUTION WIDTH 13.4 % (11.5-14.5); WHITE BLOOD COUNT W/O DIFF 12.1 K/uL (4.2-12.2)
[2017-08-27 01:50] LABS: BLOOD UREA NITROGEN 12 mg/dL (8-23); CREATININE 1.2 mg/dL (0.7-1.2); EST GLOMERULAR FILTRATION RATE > 60 mL/min
[2017-08-27 01:51] LABS: TOTAL PROTEIN 7.1 g/dL (6.6-8.7)
[2017-08-27 01:53] LABS: GLUCOSE,RANDOM 139 mg/dL (74-109)
[2017-08-27 01:55] LABS: ALB/GLOB RATIO 1.2 (1.1-1.8); ALBUMIN 3.8 g/dL (4.0-5.0); ALKALINE PHOSPHATASE 119 U/L (40-129); ALT/SGPT 23 U/L (<41); AST/SGOT 19 U/L (10.0-50.0)
--- NOTE | 2017-08-29 08:36 | RADIOLOGY REPORT ---
EXAM: PORTABLE CHEST HISTORY: CHEST PAIN AND SHORTNESS OF BREATH. SYMPTOMS FOR THE PAST TWO DAYS. TECHNIQUE: A single portable AP upright view of the chest was performed. Comparison: 11/26/09. FINDINGS: A pacemaker is in place on the right. The heart, mediastinum, and pulmonary vasculature are normal. There is minor atelectasis or scarring at the left lung base. There are no acute infiltrates or effusions. There is no pneumothorax. There are old healed left rib fractures. IMPRESSION: NO ACUTE CHEST PATHOLOGY. JOB NUMBER: [id number] [facility]
--- NOTE | 2017-08-29 08:40 | CT SCAN REPORT ---
EXAM: CT SCAN OF THE BRAIN WITHOUT CONTRAST HISTORY: HEADACHE WITHIN THE LEFT TEMPORAL REGION AND ABOVE THE LEFT EYE. TECHNIQUE: Standard CT imaging of the brain was performed in the axial plane without contrast. Additional coronal and sagittal reformatted images were also performed. Comparison: None. FINDINGS: The ventricles and subarachnoid spaces are normal. There is no mass , mass effect, intracranial hemorrhage, visible acute infarct, or abnormal extraaxial fluid. There is no hyperdense vessel sign. The skull is intact. The orbits, sinuses, and mastoids are normal. IMPRESSION: NO ACUTE INTRACRANIAL ABNORMALITY. [facility]: [id number] [facility]
== END 2017-08-27 02:46 | disposition short-term general hospital (02) ==
LOC: ER 00:39
DX: R07.9 Chest pain, unspecified (principal); I20.0 Unstable angina; I10 Essential (primary) hypertension; F17.210 Nicotine dependence, cigarettes, uncomplicated; J44.9 Chronic obstructive pulmonary disease, unspecified; I25.2 Old myocardial infarction; E78.00 Pure hypercholesterolemia, unspecified
CPT/HCPCS: 70450; 71045; 80053; 83690; 84484; 85025; 93005; 93010; 94760; 96374; 96376; 99285